=== PATIENT | male | born 1940 | race Caucasian/White ===

== ENCOUNTER 2018-03-17 16:27 | Inpatient (IN) | payer MEDICARE, BC ==
[~2018-03-17] VITALS: Ht 174 cm; Wt 74.8 kg
[~2018-03-17 16:27] MED LIST: ALLO100T PO; ASPI-612 PO; CLOP75TA15 PO; EZET10TA13 PO; FINA5TAB3 PO; GABA-532 PO; LISI-607 PO; OMEG10007 PO; OMEP20TA5 PO; PRAV80TA21 PO; SERT25TA PO; SITA1TAB2 PO; TAMS-3 PO
[2018-03-17] MEDS ORDERED: ZOLPIDEM 5 MG TABLET PO PRN ×2 (17:30→19:45)
[2018-03-17] MEDS ORDERED: Z GUARD REMEDY PASTE 57 GM TUBE TOP PRN (17:30)
[2018-03-17] MEDS ORDERED: ONDANSETRON 4 MG/2 ML VIAL IV PRN (17:30)
[2018-03-17] MEDS ORDERED: ACETAMINOPHEN 325 MG TABLET PO PRN (17:30)
[2018-03-17] MEDS ORDERED: MAGNESIUM HYDROXIDE 30 ML LIQUID UDC PO PRN (17:30)
[2018-03-17] MEDS ORDERED: SERT100T12 PO (17:45)
[2018-03-17] MEDS ORDERED: BUDE10.2 INH (17:45)
[2018-03-17] MEDS ORDERED: CLOP75TA15 PO (17:45)
[2018-03-17] MEDS ORDERED: LATA7.5D OP (17:45)
[2018-03-17] MEDS ORDERED: ZOLP10TA6 PO (17:45)
[2018-03-17] MEDS ORDERED: NITR0.4T48 SL (17:45)
[2018-03-17] MEDS ORDERED: METF-440 PO (17:45)
[2018-03-17] MEDS ORDERED: GABA800T2 PO (17:45)
[2018-03-17] MEDS ORDERED: IPRA21SP NS (17:45)
--- NOTE | 2018-03-17 18:05 | NUR ---
Dr. Simeon made aware of admission, requested for pain management orders. Home medications entered. Paged Dr. Burciaga for medication reconciliation, awaiting for call back.
[2018-03-17 20:09] VITALS: BP 100/48
--- NOTE | 2018-03-17 20:09 | NUR ---
Patient received sitting in bed, AAO X4. No acute distress or SOB noted. Able to makes needs known. On room air. Brief assessment done. Pain assessed. Safety measures maintained. Bed in low position, brake on, side rails upx2. Call light and personal belongings within reach. Continue to monitor.
[2018-03-17] MEDS ORDERED: INSULIN REGULAR, HUMAN 300 UNIT/3 ML VIAL SQ PRN (20:15)
[2018-03-17] MEDS ORDERED: DEXTROSE 50% 50 ML DISP.SYRIN IV PRN ×2 (20:15→20:45)
[2018-03-17] MEDS ORDERED: INSULIN REGULAR, HUMAN 300 UNITS/3 ML VIAL SQ PRN (20:15)
[2018-03-17] MEDS ORDERED: NITROGLYCERIN 0.4 MG/TAB BOTTLE SL PRN (20:45)
[2018-03-17] MEDS ORDERED: BISACODYL 10 MG SUPP.RECT RC PRN (21:00)
[2018-03-17] MEDS ORDERED: IPRATROPIUM BROMIDE 0.5 MG/2.5 ML NEBU NEB PRN (21:00)
[2018-03-17] MEDS ORDERED: ALBUTEROL SULFATE 2.5 MG/3 ML NEBU NEB PRN (21:00)
[2018-03-17] MEDS: LATANOPROST OPHT DROP 2.5 ML BOTTLE EACHEYE SCH (21:00)
[2018-03-17] MEDS ORDERED: BLOOD SUGAR DIAGNOSTIC 1 EACH STRIP VI SCH ×2 (21:00)
[2018-03-17] MEDS: DOCUSATE SODIUM 100 MG CAPSULE PO SCH (21:00)
[2018-03-17] MEDS ORDERED: ZOLPIDEM 5 MG TABLET PO ONE (21:30)
[2018-03-17] MEDS: ENOXAPARIN SODIUM 40 MG/0.4 ML DISP.SYRIN SQ SCH (21:39)
[2018-03-17] MEDS: FINASTERIDE 5 MG TABLET PO SCH (21:40)
[2018-03-17] MEDS: TAMSULOSIN HCL 0.4 MG CAP.SR.24H PO SCH (21:41)
[2018-03-17] MEDS: FERROUS SULFATE 325 MG TABEC PO SCH (21:41)
--- NOTE | 2018-03-17 21:50 | NUR ---
Patient refused Colace capsules. Risks and benefits explained. Patient demonstrate understanding. Continue to monitor.
[2018-03-17] MEDS: OXYCODONE HCL 5 MG TABLET PO PRN (21:51)
[2018-03-17] MEDS: BLOOD SUGAR DIAGNOSTIC 1 EACH STRIP VI SCH (21:58)
[2018-03-17] MEDS: GABAPENTIN 300 MG CAPSULE PO SCH (22:37)
[2018-03-18 04:30] VITALS: BP 150/55
[2018-03-18 05:30] LABS: BASOPHILS % (AUTO) 0.8 % (0.0-2.0); EOSINOPHILS # (AUTO) 0.1 K/uL (0.0-0.7); EOSINOPHILS % (AUTO) 1.1 % (0.0-7.0); HEMATOCRIT 28.1 % (36.7-47.1); HEMOGLOBIN 9.6 g/dL (12.5-16.3); LYMPHOCYTES # (AUTO) 0.5 K/uL (20.0-40.0); LYMPHOCYTES % (AUTO) 8.5 % (20.5-51.5); MEAN CORPUSCULAR HEMOGLOBIN 26.8 uug (23.8-33.4); MEAN CORPUSCULAR HGB CONC 34 g/dL (32.5-36.3); MEAN CORPUSCULAR VOLUME 78.6 fL (73.0-96.2); MONOCYTES # (AUTO) 0.3 K/uL (2.0-10.0); MONOCYTES % (AUTO) 5.8 % (0.0-11.0); NEUTROPHILS # (AUTO) 4.4 K/uL (1.8-8.9); NEUTROPHILS % (AUTO) 83.8 % (38.5-71.5); PLATELET COUNT (AUTO) 139 K/uL (152-348); RED BLOOD CELL COUNT(AUTO) 3.58 MIL/uL (4.06-5.63); WHITE BLOOD COUNT (AUTO) 5.3 K/uL (3.6-10.2)
[2018-03-18] MEDS: OXYCODONE HCL 5 MG TABLET PO PRN ×3 (05:43→18:17)
[2018-03-18 06:12] LABS: CARBON DIOXIDE 19 mmol/L (21-32); CHLORIDE 103 mmol/L (98-107); CHOLESTEROL 159 mg/dL (<200); CREATININE 1.2 mg/dL (0.6-1.3); GLUCOSE 162 mg/dL (74-106); HDL CHOLESTEROL 37 mg/dL (40-60); MAGNESIUM 1.9 mg/dL (1.8-2.4); PHOSPHOROUS 3.5 mg/dL (2.5-4.9); POTASSIUM 4.5 mmol/L (3.5-5.1); TRIGLYCERIDES 168 MG/DL (30-150); UREA NITROGEN, BLOOD 31 mg/dL (7-18)
--- NOTE | 2018-03-18 06:16 | NUR ---
End of the shift note Patient was stable throughout the shift. No sign of acute distress or SOB noted. On room air. Complained of Lt knee pain. Pain assessed and reassessed after pain medication. Medication given as ordered. Accu-check done, BS: 127, no coverage based on scaling scale. Safety measures maintained. All needs attended promptly. Bed brake and alarm on, side rails upx2. Call light and personal belonging within reach. Continue to monitor and will endorse to the day shift nurse accordingly.
[2018-03-18] MEDS: BLOOD SUGAR DIAGNOSTIC 1 EACH STRIP VI SCH ×4 (06:39→20:49)
[2018-03-18] MEDS ORDERED: PANTOPRAZOLE SODIUM 40 MG TABLET.DR PO SCH (07:00)
--- NOTE | 2018-03-18 07:30 | NUR ---
on bed, resting well, comfortable for now.
[2018-03-18] MEDS: INSULIN REGULAR, HUMAN 300 UNIT/3 ML VIAL SQ PRN ×3 (08:03→17:39)
[2018-03-18] MEDS ORDERED: Medication Not On Formulary EA (Gabapentin 800 MG) PO SCH (09:00)
[2018-03-18] MEDS ORDERED: METFORMIN HCL 500 MG TABLET PO SCH (09:00)
[2018-03-18] MEDS: IPRATROPIUM BROMIDE NASAL 15 ML BOTTLE 42 MCG/SPRAY NS SCH ×2 (09:00→17:00)
[2018-03-18] MEDS: GABAPENTIN 300 MG CAPSULE PO SCH ×2 (09:39→20:47)
[2018-03-18] MEDS: FERROUS SULFATE 325 MG TABEC PO SCH ×2 (09:39→20:47)
[2018-03-18] MEDS: OMEGA-3 FATTY ACIDS/FISH OIL CAPSULE PO SCH ×2 (09:42→17:36)
[2018-03-18] MEDS: EZETIMIBE 10 MG TABLET PO SCH (09:42)
[2018-03-18] MEDS: LISINOPRIL 5 MG TABLET PO SCH (09:43)
[2018-03-18] MEDS: SERTRALINE HCL 100 MG TABLET PO SCH (09:48)
--- NOTE | 2018-03-18 11:45 | NUR ---
back from PT , tolerated fair. med with pain med as requested.
[2018-03-18] MEDS: ALLOPURINOL 100 MG TABLET PO SCH (11:52)
--- NOTE | 2018-03-18 11:53 | NUR ---
at bedside, supportive of patient care.
[2018-03-18 16:01] VITALS: BP 113/52
--- NOTE | 2018-03-18 16:22 | NUR ---
granddaughter and at bedside, back to visit, supportive of care. patient glad of visit
[2018-03-18] MEDS: METFORMIN HCL 500 MG TABLET PO SCH (17:37)
--- NOTE | 2018-03-18 19:30 | NUR ---
PATIENT AWAKE OMN BED WATCHING TV. NO C/O OF PAIN OR DISCOMFORT. WILL CONTINUE TO MONITOR. CALL LIGHT IN REACH.
[2018-03-18 20:03] VITALS: BP 122/69
[2018-03-18] MEDS: DOCUSATE SODIUM 100 MG CAPSULE PO SCH (20:47)
[2018-03-18] MEDS: FINASTERIDE 5 MG TABLET PO SCH (20:47)
[2018-03-18] MEDS: TAMSULOSIN HCL 0.4 MG CAP.SR.24H PO SCH (20:47)
[2018-03-18] MEDS: ZOLPIDEM 5 MG TABLET PO SCH (20:48)
[2018-03-18] MEDS: LATANOPROST OPHT DROP 2.5 ML BOTTLE EACHEYE SCH (20:48)
[2018-03-18] MEDS: ENOXAPARIN SODIUM 40 MG/0.4 ML DISP.SYRIN SQ SCH (20:59)
--- NOTE | 2018-03-18 21:00 | NUR ---
BS CHECK DONE WITH THE RESULT 143. INSULIN PER SLIDING SCALE REFUSED
[2018-03-19 04:42] VITALS: BP 99/51
[2018-03-19] MEDS: OXYCODONE HCL 5 MG TABLET PO PRN ×3 (06:04→15:47)
[2018-03-19] MEDS: BLOOD SUGAR DIAGNOSTIC 1 EACH STRIP VI SCH ×4 (06:39→20:21)
--- NOTE | 2018-03-19 06:42 | NUR ---
PATIENT SLEEPING INTERMITTENTLY.PAIN MEDICATION ADMINISTERED ON C/O PAIN. PATIENT SLEPT ABOUT 5 HRS DURING THE SHIFT. PATIENT USING BRP WITH ASSISTANCE. NO BM DURING THE SHIFT. CALL LIGHT IN REACH. NO BM DURING THE SHIFT , BS CHECK DONE WITH THE RESULT 171.
[2018-03-19] MEDS: SERTRALINE HCL 100 MG TABLET PO SCH (08:28)
[2018-03-19] MEDS: METFORMIN HCL 500 MG TABLET PO SCH ×2 (08:28→17:15)
[2018-03-19] MEDS: GABAPENTIN 300 MG CAPSULE PO SCH ×2 (08:28→20:20)
[2018-03-19] MEDS: FERROUS SULFATE 325 MG TABEC PO SCH ×2 (08:28→20:21)
[2018-03-19] MEDS: OMEGA-3 FATTY ACIDS/FISH OIL CAPSULE PO SCH ×2 (08:29→17:15)
[2018-03-19] MEDS: EZETIMIBE 10 MG TABLET PO SCH (08:29)
[2018-03-19] MEDS: LISINOPRIL 5 MG TABLET PO SCH (08:38)
[2018-03-19] MEDS: IPRATROPIUM BROMIDE NASAL 15 ML BOTTLE 42 MCG/SPRAY NS SCH ×2 (08:44→17:00)
[2018-03-19] MEDS: INSULIN REGULAR, HUMAN 300 UNIT/3 ML VIAL SQ PRN ×4 (08:46→20:25)
[2018-03-19] MEDS: ALLOPURINOL 100 MG TABLET PO SCH (10:26)
--- NOTE | 2018-03-19 12:10 | NUR ---
at bedside , supportive of patient care.
--- NOTE | 2018-03-19 15:47 | NUR ---
complaint of pain left knee while in therapy, med as requested.
--- NOTE | 2018-03-19 17:00 | NUR ---
in ,supportive of patient care. appetite fair
--- NOTE | 2018-03-19 18:51 | NUR ---
prn forgetfulness, monitored for safety. enc to call for assistance , will call. watching tv on and off. pain relief from med verbalized
[2018-03-19 20:08] VITALS: BP 134/61
[2018-03-19] MEDS: ZOLPIDEM 5 MG TABLET PO SCH (20:20)
[2018-03-19] MEDS: DOCUSATE SODIUM 100 MG CAPSULE PO SCH (20:20)
[2018-03-19] MEDS: LATANOPROST OPHT DROP 2.5 ML BOTTLE EACHEYE SCH (20:20)
[2018-03-19] MEDS: FINASTERIDE 5 MG TABLET PO SCH (20:20)
[2018-03-19] MEDS: TAMSULOSIN HCL 0.4 MG CAP.SR.24H PO SCH (20:21)
[2018-03-19] MEDS: ENOXAPARIN SODIUM 40 MG/0.4 ML DISP.SYRIN SQ SCH (20:27)
[2018-03-19] MEDS ORDERED: HYDROCODONE/APAP 5-325MG TABLET PO PRN (21:15)
[2018-03-19] MEDS: HYDROCODONE/APAP 10-325 MG TABLET PO PRN (21:25)
[2018-03-20] MEDS: OXYCODONE HCL 5 MG TABLET PO PRN ×3 (05:00→17:10)
[2018-03-20 05:52] VITALS: BP 141/55
--- NOTE | 2018-03-20 06:19 | NUR ---
PATIENT SLEPT WELL THROUGH THE SHIFT. PAIN MEDS GIVEN PRN X2 WITH EFFECT. NO C/O PAIN OR ACUTE DISTRESS AT THIS TIME. SAFETY MEASURES MAINTAINED AT ALL TIMES
[2018-03-20] MEDS: BLOOD SUGAR DIAGNOSTIC 1 EACH STRIP VI SCH ×4 (06:32→20:39)
--- NOTE | 2018-03-20 08:31 | NUR ---
patient noted resting in bed watching tv, complaints of pain 6/ 10 in left knee, ice pack on left knee at this time, no signs of distress noted, call light in reach, bed locked and in lowest position, all needs met at this time
[2018-03-20] MEDS: GABAPENTIN 300 MG CAPSULE PO SCH ×2 (08:58→20:23)
[2018-03-20] MEDS: SERTRALINE HCL 100 MG TABLET PO SCH (08:59)
[2018-03-20] MEDS: FERROUS SULFATE 325 MG TABEC PO SCH ×2 (08:59→20:22)
[2018-03-20] MEDS: ALLOPURINOL 100 MG TABLET PO SCH (08:59)
[2018-03-20] MEDS: METFORMIN HCL 500 MG TABLET PO SCH ×2 (09:01→17:09)
[2018-03-20] MEDS: HYDROCODONE/APAP 10-325 MG TABLET PO PRN ×3 (09:02→20:24)
[2018-03-20] MEDS: IPRATROPIUM BROMIDE NASAL 15 ML BOTTLE 42 MCG/SPRAY NS SCH ×2 (09:03→17:11)
[2018-03-20] MEDS: OMEGA-3 FATTY ACIDS/FISH OIL CAPSULE PO SCH ×2 (09:05→17:09)
[2018-03-20] MEDS: LISINOPRIL 5 MG TABLET PO SCH (09:06)
[2018-03-20] MEDS: EZETIMIBE 10 MG TABLET PO SCH (09:06)
--- NOTE | 2018-03-20 11:03 | NUR ---
INTERDISCIPLINARY TEAM CONFERENCE
--- NOTE | 2018-03-20 16:26 | NUR ---
INTERDISCIPLINARY TEAM CONFERENCE
[2018-03-20 16:49] VITALS: BP 119/44
--- NOTE | 2018-03-20 18:56 | NUR ---
Patient refused all insulin coverage this shift
[2018-03-20 20:00] VITALS: BP 124/62
--- NOTE | 2018-03-20 20:00 | NUR ---
Patient received in bed, AAO X4. No acute distress or SOB noted. Able to makes needs known. On room air. Brief assessment done. Pain assessed. Safety measures maintained. Bed in low position, brake on, side rails upx2. Call light and personal belongings within reach. Continue to monitor.
[2018-03-20] MEDS: TAMSULOSIN HCL 0.4 MG CAP.SR.24H PO SCH (20:22)
[2018-03-20] MEDS: FINASTERIDE 5 MG TABLET PO SCH (20:22)
[2018-03-20] MEDS: ZOLPIDEM 5 MG TABLET PO SCH (20:23)
[2018-03-20] MEDS: ENOXAPARIN SODIUM 40 MG/0.4 ML DISP.SYRIN SQ SCH (20:25)
[2018-03-20] MEDS: DOCUSATE SODIUM 100 MG CAPSULE PO SCH (20:26)
[2018-03-20] MEDS: LATANOPROST OPHT DROP 2.5 ML BOTTLE EACHEYE SCH (20:28)
--- NOTE | 2018-03-20 21:40 | NUR ---
Patient refused Insulin coverage, BS: 163. Risks and benefits explained. Patient demonstrate understanding. Continue to monitor.
--- NOTE | 2018-03-20 21:45 | NUR ---
Patient refused Colace capsules. Risks and benefits explained. Patient demonstrate understanding. Continue to monitor.
[2018-03-21] MEDS: OXYCODONE HCL 5 MG TABLET PO PRN ×3 (04:31→18:14)
[2018-03-21 06:15] VITALS: BP 131/60
--- NOTE | 2018-03-21 06:15 | NUR ---
End of the shift note Patient was stable throughout the shift. No sign of acute distress or SOB noted. On room air. Complained of Lt knee pain. Pain assessed and reassessed after pain medication. Medication given as ordered. Accu-check done, BS @ 2100:163, patient refused coverage of Insulin. Safety measures maintained. All needs attended promptly. Bed brake and alarm on, side rails upx2. Call light and personal belonging within reach. Continue to monitor and will endorse to the day shift nurse accordingly.
[2018-03-21] MEDS: BLOOD SUGAR DIAGNOSTIC 1 EACH STRIP VI SCH ×4 (06:41→20:59)
[2018-03-21 07:05] VITALS: BP 120/46
--- NOTE | 2018-03-21 07:49 | NUR ---
patient noted resting in bed watching tv, complaints of pain 5/ 10 in left knee, will give PRN pain medication, no signs of distress noted, call light in reach, bed locked and in lowest position, all needs met at this time
[2018-03-21] MEDS: FERROUS SULFATE 325 MG TABEC PO SCH ×2 (08:46→21:02)
[2018-03-21] MEDS: METFORMIN HCL 500 MG TABLET PO SCH ×2 (08:46→18:11)
[2018-03-21] MEDS: ALLOPURINOL 100 MG TABLET PO SCH (08:46)
[2018-03-21] MEDS: GABAPENTIN 300 MG CAPSULE PO SCH ×2 (08:46→21:02)
[2018-03-21] MEDS: HYDROCODONE/APAP 10-325 MG TABLET PO PRN ×2 (08:47→15:49)
[2018-03-21] MEDS: OMEGA-3 FATTY ACIDS/FISH OIL CAPSULE PO SCH ×2 (08:47→18:11)
[2018-03-21] MEDS: SERTRALINE HCL 100 MG TABLET PO SCH (08:47)
[2018-03-21] MEDS: EZETIMIBE 10 MG TABLET PO SCH (08:48)
[2018-03-21] MEDS: LISINOPRIL 5 MG TABLET PO SCH (08:52)
[2018-03-21] MEDS: IPRATROPIUM BROMIDE NASAL 15 ML BOTTLE 42 MCG/SPRAY NS SCH ×2 (08:52→17:00)
[2018-03-21 15:40] VITALS: BP 142/59
[2018-03-21] MEDS: INSULIN REGULAR, HUMAN 300 UNIT/3 ML VIAL SQ PRN (21:00)
[2018-03-21] MEDS: LATANOPROST OPHT DROP 2.5 ML BOTTLE EACHEYE SCH (21:01)
[2018-03-21] MEDS: TAMSULOSIN HCL 0.4 MG CAP.SR.24H PO SCH (21:02)
[2018-03-21] MEDS: DOCUSATE SODIUM 100 MG CAPSULE PO SCH (21:02)
[2018-03-21] MEDS: FINASTERIDE 5 MG TABLET PO SCH (21:02)
[2018-03-21] MEDS: ZOLPIDEM 5 MG TABLET PO SCH (21:03)
[2018-03-21 21:05] VITALS: BP 138/67
[2018-03-21] MEDS: OXYCODONE HCL 10 MG TAB.SR.12H PO SCH (21:05)
[2018-03-21] MEDS: ENOXAPARIN SODIUM 40 MG/0.4 ML DISP.SYRIN SQ SCH (21:07)
--- NOTE | 2018-03-22 00:49 | NUR ---
resting in bed. aaox4 patient with left total knee replacement. left knee incision [employer] INBOARD/OUTBOARD with steristrips intact.Pain meds given as ordered Tolerated well. no acute distress noted. Fall precautions maintained. Voiding well. Siderails up for safety.
[2018-03-22] MEDS: OXYCODONE HCL 5 MG TABLET PO PRN ×2 (03:06→16:10)
[2018-03-22 05:15] VITALS: BP 136/78
[2018-03-22 08:15] VITALS: BP 111/61
[2018-03-22] MEDS: METFORMIN HCL 500 MG TABLET PO SCH ×2 (08:26→17:14)
[2018-03-22] MEDS: SERTRALINE HCL 100 MG TABLET PO SCH (08:27)
[2018-03-22] MEDS: FERROUS SULFATE 325 MG TABEC PO SCH ×2 (08:27→21:06)
[2018-03-22] MEDS: GABAPENTIN 300 MG CAPSULE PO SCH ×2 (08:27→21:06)
[2018-03-22] MEDS: ALLOPURINOL 100 MG TABLET PO SCH (08:29)
[2018-03-22] MEDS: OXYCODONE HCL 10 MG TAB.SR.12H PO SCH ×2 (08:29→21:06)
[2018-03-22] MEDS: OMEGA-3 FATTY ACIDS/FISH OIL CAPSULE PO SCH ×2 (08:29→16:11)
[2018-03-22] MEDS: LISINOPRIL 5 MG TABLET PO SCH (08:30)
[2018-03-22] MEDS: EZETIMIBE 10 MG TABLET PO SCH (08:30)
--- NOTE | 2018-03-22 09:25 | NUR ---
Received pt. in bed comfortable. Pt. A/OX3-4 able to make his needs known. Denies SOB or CP at this time. All due AM medications given as ordered and tolerated well. No new skin condition noted. All pt. needs attended and met. Safety measures in place. Call light and all frequently used items within pt. reach. Will continue to monitor accordingly.
[2018-03-22 16:34] VITALS: BP 126/62
--- NOTE | 2018-03-22 18:24 | NUR ---
EOS Note: No significant change during this shift. No changes in mentation, able to make his needs known. Pt. participated with PT/OT and tolerated well. All due medications given as ordered. No new skin condition noted. Lt. knee surgical dressing C/D/I. No s/sx of hypo/hyperglycemia. No s/sx of bleeding. Encouraged pt. to use CPM @ 75 degrees and tolerating well. All pt. needs promptly attended and met. Safety measures in place. Call light and all frequently used items within pt. reach. Will endorse to oncoming shift accordingly.
[2018-03-22 19:54] VITALS: BP 122/57
[2018-03-22] MEDS: LATANOPROST OPHT DROP 2.5 ML BOTTLE EACHEYE SCH (21:04)
[2018-03-22] MEDS: TAMSULOSIN HCL 0.4 MG CAP.SR.24H PO SCH (21:05)
[2018-03-22] MEDS: DOCUSATE SODIUM 100 MG CAPSULE PO SCH (21:05)
[2018-03-22] MEDS: FINASTERIDE 5 MG TABLET PO SCH (21:06)
[2018-03-22] MEDS: ZOLPIDEM 5 MG TABLET PO SCH (21:08)
[2018-03-22] MEDS: ENOXAPARIN SODIUM 40 MG/0.4 ML DISP.SYRIN SQ SCH (21:10)
[2018-03-23] MEDS: OXYCODONE HCL 5 MG TABLET PO PRN ×3 (01:29→18:00)
--- NOTE | 2018-03-23 03:48 | NUR ---
awake alert and oriented. needs attended. no acute distress noted. VSS kept comfortable. voiding well in the urinal. I & O monitored. denies any pain at this time. fall precautions maintained.left knee incision with dressing intact. needs attended.
[2018-03-23 04:30] VITALS: BP 126/63
--- NOTE | 2018-03-23 06:48 | NUR ---
slept most of the night. no acute distress noted. voiding without difficulty, using the urinal. left knee dressing clean dry and intact. pain meds given as needed. will monitor patient. fall precautions maintained. siderails up for safety.
[2018-03-23] MEDS: SERTRALINE HCL 100 MG TABLET PO SCH (08:22)
[2018-03-23] MEDS: METFORMIN HCL 500 MG TABLET PO SCH ×2 (08:22→17:07)
[2018-03-23] MEDS: ALLOPURINOL 100 MG TABLET PO SCH (08:22)
[2018-03-23] MEDS: GABAPENTIN 300 MG CAPSULE PO SCH ×2 (08:24→21:11)
[2018-03-23] MEDS: OXYCODONE HCL 10 MG TAB.SR.12H PO SCH ×2 (08:24→21:12)
[2018-03-23] MEDS: EZETIMIBE 10 MG TABLET PO SCH (08:24)
[2018-03-23] MEDS: LISINOPRIL 5 MG TABLET PO SCH (08:24)
[2018-03-23] MEDS: OMEGA-3 FATTY ACIDS/FISH OIL CAPSULE PO SCH ×2 (08:24→17:07)
[2018-03-23] MEDS: FERROUS SULFATE 325 MG TABEC PO SCH ×2 (08:24→21:11)
--- NOTE | 2018-03-23 10:07 | NUR ---
Patient is alert and orientedx4. Continue therapy for ADL, ambulation and transfer activity. Continue pain management with good effect. no adverse reaction noted. not in distress. will continue monitor
[2018-03-23 16:10] VITALS: BP 94/55
[2018-03-23 20:11] VITALS: BP 103/59
--- NOTE | 2018-03-23 20:25 | NUR ---
SBAR report received. Resting in bed. aaox4 in good spirits. no acute distress noted. will monitor patient. pain meds given as needed. Compliant with meds. Voiding freely. left knee dressing clean dry and intact. VSS. Fall precautions maintained.
[2018-03-23] MEDS: TAMSULOSIN HCL 0.4 MG CAP.SR.24H PO SCH (21:11)
[2018-03-23] MEDS: FINASTERIDE 5 MG TABLET PO SCH (21:11)
[2018-03-23] MEDS: DOCUSATE SODIUM 100 MG CAPSULE PO SCH (21:11)
[2018-03-23] MEDS: ZOLPIDEM 5 MG TABLET PO SCH (21:12)
[2018-03-23] MEDS: LATANOPROST OPHT DROP 2.5 ML BOTTLE EACHEYE SCH (21:14)
[2018-03-23] MEDS: ENOXAPARIN SODIUM 40 MG/0.4 ML DISP.SYRIN SQ SCH (21:17)
[2018-03-24] MEDS: OXYCODONE HCL 5 MG TABLET PO PRN ×3 (03:50→17:29)
[2018-03-24 06:11] VITALS: BP 95/44
[2018-03-24 08:00] VITALS: BP 119/56
--- NOTE | 2018-03-24 08:00 | NUR ---
SBAR report received, board updated. Pt received resting in bed, positive attitude. AAOx3. Plan for today discussed. VSS. Pt assessed, no acute distress or SOB, denies pain. Bed in locked and lowest position with side rails upx2. Call light within reach. Will continue to monitor.
[2018-03-24] MEDS: OMEGA-3 FATTY ACIDS/FISH OIL CAPSULE PO SCH ×2 (08:45→17:17)
[2018-03-24] MEDS: FERROUS SULFATE 325 MG TABEC PO SCH ×2 (08:47→20:32)
[2018-03-24] MEDS: METFORMIN HCL 500 MG TABLET PO SCH ×2 (08:47→17:17)
[2018-03-24] MEDS: ALLOPURINOL 100 MG TABLET PO SCH (08:48)
[2018-03-24] MEDS: SERTRALINE HCL 100 MG TABLET PO SCH (08:49)
[2018-03-24] MEDS: GABAPENTIN 300 MG CAPSULE PO SCH ×2 (08:49→20:33)
[2018-03-24] MEDS: OXYCODONE HCL 10 MG TAB.SR.12H PO SCH ×2 (08:55→20:33)
[2018-03-24] MEDS: EZETIMIBE 10 MG TABLET PO SCH (08:57)
[2018-03-24] MEDS: LISINOPRIL 5 MG TABLET PO SCH (09:00)
--- NOTE | 2018-03-24 14:00 | NUR ---
INTERDISCIPLINARY TEAM CONFERENCE
[2018-03-24 16:00] VITALS: BP 127/58
--- NOTE | 2018-03-24 18:59 | NUR ---
No change in Pt status during this shift. All needs promptly attended to. Pt denies pain at this time. Bed alarm on, call light within reach. Will continue to monitor and endorse to coming third shift lieutenant.
[2018-03-24 20:00] VITALS: BP 131/68
[2018-03-24] MEDS: DOCUSATE SODIUM 100 MG CAPSULE PO SCH (20:32)
[2018-03-24] MEDS: FINASTERIDE 5 MG TABLET PO SCH (20:32)
[2018-03-24] MEDS: TAMSULOSIN HCL 0.4 MG CAP.SR.24H PO SCH (20:32)
[2018-03-24] MEDS: ZOLPIDEM 5 MG TABLET PO SCH (20:32)
[2018-03-24] MEDS: LATANOPROST OPHT DROP 2.5 ML BOTTLE EACHEYE SCH (20:33)
[2018-03-24] MEDS: ENOXAPARIN SODIUM 40 MG/0.4 ML DISP.SYRIN SQ SCH (20:35)
--- NOTE | 2018-03-24 22:23 | NUR ---
Received pt resting in bed and watching TV. AAO x3. Pt appears to be irritated upon assessment. Pt asked why I am asking him questions and that he had enough questions already. Tried explaining to the pt and pt said there's no need to explain and that he understands. No acute distress noted. C/o pain on the left knee but pt unable to scale the pain. Pt stated that he does not know. All meds given as ordered including routine pain med. Safety measures maintained. Call light and personal belongings within reach. Will continue to monitor.
[2018-03-25] MEDS: OXYCODONE HCL 5 MG TABLET PO PRN ×3 (01:42→17:37)
[2018-03-25 06:00] VITALS: BP 136/58
--- NOTE | 2018-03-25 06:43 | NUR ---
Pt slept intermittently at night. All needs attended to promptly. Assisted to the bathroom as needed. Pt c/o pain 8/10 on the left knee at 0142, oxyir prn given as ordered. Pt was turned and repositioned. AM Vitals stable. At 0549, c/o pain 3/10 left knee, Tylenol prn and ice pack given. Will endorse accordingly to oncoming day shift RN. Continue to monitor.
[2018-03-25 06:48] LABS: EOSINOPHILS # (AUTO) 0.1 K/uL (0.0-0.7); EOSINOPHILS % (AUTO) 1.3 % (0.0-7.0); HEMATOCRIT 28.9 % (36.7-47.1); HEMOGLOBIN 9.8 g/dL (12.5-16.3); LYMPHOCYTES # (AUTO) 0.6 K/uL (20.0-40.0); LYMPHOCYTES % (AUTO) 12.5 % (20.5-51.5); MEAN CORPUSCULAR HEMOGLOBIN 26.6 uug (23.8-33.4); MEAN CORPUSCULAR HGB CONC 34 g/dL (32.5-36.3); MEAN CORPUSCULAR VOLUME 78.5 fL (73.0-96.2); MONOCYTES # (AUTO) 0.3 K/uL (2.0-10.0); MONOCYTES % (AUTO) 5.9 % (0.0-11.0); NEUTROPHILS # (AUTO) 3.8 K/uL (1.8-8.9); NEUTROPHILS % (AUTO) 79.3 % (38.5-71.5); PLATELET COUNT (AUTO) 193 K/uL (152-348); RED BLOOD CELL COUNT(AUTO) 3.69 MIL/uL (4.06-5.63); WHITE BLOOD COUNT (AUTO) 4.8 K/uL (3.6-10.2)
[2018-03-25 07:11] LABS: IRON, SERUM 27 ug/dL (50-175)
[2018-03-25 07:14] LABS: THYROID STIMULATING HORMONE 1.648 mIU/mL (0.358-3.740)
[2018-03-25 07:36] LABS: ALANINE AMINOTRANSFERASE 23 U/L (16-63); ALKALINE PHOSPHATASE 73 U/L (50-136); ASPARTATE AMINOTRANSFERASE 16 U/L (15-37); BILIRUBIN,TOTAL 0.7 mg/dL (0.2-1.0); CARBON DIOXIDE 24 mmol/L (21-32); CHLORIDE 103 mmol/L (98-107); GLUCOSE 173 mg/dL (74-106); MAGNESIUM 1.8 mg/dL (1.8-2.4); PHOSPHOROUS 3.9 mg/dL (2.5-4.9); POTASSIUM 4.5 mmol/L (3.5-5.1); TOTAL PROTEIN, SERUM 6.6 g/dL (6.4-8.2); UREA NITROGEN, BLOOD 37 mg/dL (7-18)
[2018-03-25] MEDS: FERROUS SULFATE 325 MG TABEC PO SCH ×2 (08:18→22:06)
[2018-03-25] MEDS: METFORMIN HCL 500 MG TABLET PO SCH ×2 (08:19→17:11)
[2018-03-25] MEDS: GABAPENTIN 300 MG CAPSULE PO SCH ×2 (08:19→22:20)
[2018-03-25] MEDS: ALLOPURINOL 100 MG TABLET PO SCH (08:19)
[2018-03-25] MEDS: SERTRALINE HCL 100 MG TABLET PO SCH (08:19)
[2018-03-25] MEDS: OMEGA-3 FATTY ACIDS/FISH OIL CAPSULE PO SCH ×2 (08:19→17:11)
[2018-03-25] MEDS: OXYCODONE HCL 10 MG TAB.SR.12H PO SCH ×2 (08:20→22:11)
[2018-03-25] MEDS: EZETIMIBE 10 MG TABLET PO SCH (08:20)
[2018-03-25] MEDS: LISINOPRIL 5 MG TABLET PO SCH (08:20)
--- NOTE | 2018-03-25 12:21 | NUR ---
Patient continue on pain management with good effect. Continue therapy for ambulation and ADL activity. for discharge to home tomorrow around 1pm. MD aware. prescribe medicines at chart.
[2018-03-25 16:48] VITALS: BP 117/51
[2018-03-25 20:00] VITALS: BP 114/60
--- NOTE | 2018-03-25 20:00 | NUR ---
RECEIVED PATIENT AFTER SHIFT REPORT IN STABLE CONDITION. BSS 98.4-68-20 BP 114/60. SATS 98% ON ROOM AIR. COLOR GOOD. A&O X 3 WITH APPROPRIATE AFFECT. SKIN WARM, DRY, AND INTACT WITH POSTOPERATIVE DRESSING TO LEFT KNEE WITH CLEAN, DRY, AND INTACT STERI STRIPPED INCISION WITH NO SIGNS OF SEPARATION, SWELLING, OR OTHER SIGNS OF INFECTION. NEUROVASCULAR CIRC CHECKS: LLE WITH +SENSATION, ROM, BRISK CAPILLARY REFILL TO TOES, AND GOOD STRONG PEDAL PULSES BILATERALLY. RIGHT LE UNREMARKABLE. ABDOMEN SOFT AND FLAT WITH +BOWEL SOUNDS. LUNGS CTA TO BILATERAL UPPER LOBES WITHOUT COUGH. OOB WITH BRPS WITHOUT ASSIST. DENIES CARDICA/RESPIRATORY DISTRESS OR SUPPRESSION.
[2018-03-25] MEDS: LATANOPROST OPHT DROP 2.5 ML BOTTLE EACHEYE SCH (21:00)
[2018-03-25] MEDS: ENOXAPARIN SODIUM 40 MG/0.4 ML DISP.SYRIN SQ SCH (21:00)
--- NOTE | 2018-03-25 22:00 | NUR ---
PLEASE NOTE THAT NURSE ADMINISTERED ALL MEDS WITH PATIENT TEACHING ON INDICATION FOR MEDS BUT PATIENT REFUSED LOVENOX 40 MG SQ AT 22:00. NURSE AGAIN IMPRESSED UPON PATIENT THE IMPORTANCE OF THIS PARTICULAR MED; BUT, PATIENT AGAIN REFUSED. NO SIGNS OF THROMBUS FORMATION, PAIN, SWELLING, ETC TO BLES. NO SIGNS OF ACUTE CARDIAC/RESPIRATORY DISTRESS OR SUPPRESSION.
[2018-03-25] MEDS: FINASTERIDE 5 MG TABLET PO SCH (22:06)
[2018-03-25] MEDS: TAMSULOSIN HCL 0.4 MG CAP.SR.24H PO SCH (22:08)
[2018-03-25] MEDS: DOCUSATE SODIUM 100 MG CAPSULE PO SCH (22:08)
[2018-03-25] MEDS: ZOLPIDEM 5 MG TABLET PO SCH (22:21)
--- NOTE | 2018-03-26 | NUR ---
NEUROVASCULAR CIRC CHECK: LEFT LOWER EXTREMITY WITH +SENSATION, ROM, BRISK CAPILLARY REFILL TO TOES, AND GOOD STRONG PEDAL PULSES. NO CHANGE IN NEUROVASCULAR CIRC CHECKS, NO DEFICITS.
[2018-03-26] MEDS: OXYCODONE HCL 5 MG TABLET PO PRN ×2 (02:54→07:26)
--- NOTE | 2018-03-26 04:00 | NUR ---
VSS 98.4-74-20 BP 164/83. SATS 95% ON ROOM AIR. PATIENT RESTS QUIETLY. PATIENT INCONTINENT OF ONE LARGE BROWN BM. NO SKIN BREAKDOWNS. DENIES PAINS AND DISCOMFORTS. NO FALL THIS 12-HOUR SHIFT.
--- NOTE | 2018-03-26 04:00 | NUR ---
VSS 97.8-66-20 BP 123/67. SATS 96% ON ROOM AIR. PATIENT WAS MEDICATED FOR 11/29 LLE PAIN WITH OXYCODONE 10 MG IR AT 02:54. PAIN COMPLETELY RELIEVED ALLOWING PATIENT TO REST COMFORTABLY. NEUROVASCULAR CIRC CHECKS: NO CHANGES, NO DEFICITS. RESTS QUIETLY WITH NO SIGNS OF ACUTE CARDIAC/RESPIRATORY DISTRESS OR SUPPRESSION.
[2018-03-26] MEDS: METFORMIN HCL 500 MG TABLET PO SCH (07:25)
[2018-03-26 09:00] VITALS: BP 95/53
[2018-03-26] MEDS: LISINOPRIL 5 MG TABLET PO SCH (09:00)
--- NOTE | 2018-03-26 09:05 | NUR ---
SBAR report received, board updated. Pt assessed, AAOx3, reports QID PRN pain medication relieved 6/10 pain to left knee surgical site. Dressing changed per Pt request. Pt able to make needs known. Pt compliant with all routine medication administration. Plan for today discussed, including anticipated D/C this afternoon. Bed in locked and lowest position, with side rails up x2. Pt assisted to wheelchair to eat breakfast. All safety and comfort needs met. Personal items and call light within reach. Will continue to monitor.
[2018-03-26] MEDS: FERROUS SULFATE 325 MG TABEC PO SCH (09:18)
[2018-03-26] MEDS: GABAPENTIN 300 MG CAPSULE PO SCH (09:19)
[2018-03-26] MEDS: ALLOPURINOL 100 MG TABLET PO SCH (09:19)
[2018-03-26] MEDS: SERTRALINE HCL 100 MG TABLET PO SCH (09:20)
[2018-03-26] MEDS: OXYCODONE HCL 10 MG TAB.SR.12H PO SCH (09:21)
[2018-03-26] MEDS: EZETIMIBE 10 MG TABLET PO SCH (09:21)
[2018-03-26] MEDS: OMEGA-3 FATTY ACIDS/FISH OIL CAPSULE PO SCH (10:23)
--- NOTE | 2018-03-26 13:05 | NUR ---
Discharge order received. Discharge paperwork discussed, along with Pt education material, signed, and copies placed in chart. Skin is intact except for left knee surgical incision, photographed with steri-strips in place. All discharge concerns addressed, plus outpatient PT and scheduled follow up appointment with his Ortho Surgeon, Dr. Kwok on 03/29/18 at 2:45pm at [address] [id number]. Home Rx returned. Medications list reviewed, faxed to pharmacy, and hard copies provided to Pt. ME reported already at home. Personal belongings accounted for and list signed. VSS. ID band removed. Pt safely escorted out of hospital via wheelchair to private vehicle with driving. Will remove Pt from system shortly.
== END 2018-03-26 13:05 | disposition home or self-care (01) | DRG 559 ==
PROVIDERS: ADMIT Physical Medicine & Rehabilitation Pain Medicine; ATTEND Physical Medicine & Rehabilitation Pain Medicine
DX: Z47.1 Aftercare following joint replacement surgery (principal); N17.0 Acute kidney failure with tubular necrosis; D68.59 Other primary thrombophilia; Z96.653 Presence of artificial knee joint, bilateral; E11.22 Type 2 diabetes mellitus with diabetic chronic kidney disease; E78.5 Hyperlipidemia, unspecified; I12.9 Hypertensive chronic kidney disease with stage 1 through stage 4 chronic kidney disease, or unspecified chronic kidney disease; I25.10 Atherosclerotic heart disease of native coronary artery without angina pectoris; J44.9 Chronic obstructive pulmonary disease, unspecified; K21.9 Gastro-esophageal reflux disease without esophagitis; N18.3 Chronic kidney disease, stage 3 (moderate); N40.0 Benign prostatic hyperplasia without lower urinary tract symptoms; H40.9 Unspecified glaucoma; Z95.1 Presence of aortocoronary bypass graft; Z95.5 Presence of coronary angioplasty implant and graft; M19.90 Unspecified osteoarthritis, unspecified site; M10.9 Gout, unspecified; D69.6 Thrombocytopenia, unspecified; G47.00 Insomnia, unspecified; M50.90 Cervical disc disorder, unspecified, unspecified cervical region; M54.10 Radiculopathy, site unspecified; Z87.891 Personal history of nicotine dependence; Z90.49 Acquired absence of other specified parts of digestive tract; R23.3 Spontaneous ecchymoses; R53.1 Weakness; I73.9 Peripheral vascular disease, unspecified; D50.9 Iron deficiency anemia, unspecified
CPT/HCPCS: 36415; 83550; 83735; 84100; 84443; 85025; 92526; 92610; 97110; 97112; 97116; 97165; 97530; 97535; J1650; J1815; J8499